=== PATIENT | female | born 2000 | race Caucasian/White ===

== ENCOUNTER 2021-10-28 13:57 | Emergency (ER) | payer OTHER ==
[~2021-10-28] VITALS: Ht 154.9 cm; Wt 86.7 kg
[2021-10-28 14:05] VITALS: BP 106/70
--- NOTE | 2021-10-28 14:16 | NUR ---
PT AMBULATED TO BED 2
--- NOTE | 2021-10-28 14:20 | NUR ---
WILLY DAMON BEDSIDE EVALUATING PT
--- NOTE | 2021-10-28 14:23 | NUR ---
21Y FEMALE BIB SELF WITH C/O 3/10 SORE THROAT, LEFT EAR PAIN X TODAY. PT TOOK IBUPROFEN 3 HOURS AGO. PER PATIENT "SHE EXPERINCED THESE SAME SYMPTOMS X2 WEEKS AGO AND WAS GIVEN AMOXICILLIN BY HER RN FRIEND WHICH RESOLVED THESE SYMPTOMS FOR A WEEK." PER PATIENT THE SYMPTOMS STARTED TO OCCUR AGAIN THIS AM. PT DENIES ANY CP, SOB, FEVER/CHILLS. PT A&OX4. PMH: DENIES NKA
--- NOTE | 2021-10-28 14:27 | NUR ---
STREP SWAB COLLECTED AND HANDED TO YOMI BREWER
[2021-10-28] MEDS ORDERED: AMOX-1230 PO (14:51)
[2021-10-28] MEDS ORDERED: IBUP-2213 PO (14:51)
[2021-10-28 15:18] VITALS: BP 106/70
--- NOTE | 2021-10-28 15:18 | NUR ---
Patient discharged with v/s stable. Written and verbal after care instructions given and explained. Patient alert, oriented and verbalized understanding of instructions. Ambulatory with steady gait. All questions addressed prior to discharge. ID band removed. Patient advised to follow up with PMD. Rx of IBUPROFEN AND AMOXICILLIN/POTASSIUM given. Patient educated on indication of medication including possible reaction and side effects. Opportunity to ask questions provided and answered.
== END 2021-10-28 15:18 | disposition home or self-care (01) ==
LOC: MED 13:57
DX: J03.90 Acute tonsillitis, unspecified (principal); Z79.1 Long term (current) use of non-steroidal anti-inflammatories (NSAID); Z79.2 Long term (current) use of antibiotics
CPT/HCPCS: 87081; 99283

== ENCOUNTER 2021-11-07 08:20 | Emergency (ER) | payer OTHER ==
[~2021-11-07] VITALS: Ht 154.9 cm; Wt 85.3 kg
[~2021-11-07 08:20] MED LIST: AMOX-1230 PO; IBUP-2213 PO
[2021-11-07 08:26] VITALS: BP 124/74
--- NOTE | 2021-11-07 08:30 | NUR ---
Pt ambulated to bed 12 steady/even gait.
--- NOTE | 2021-11-07 08:38 | NUR ---
21 y/o female, c/o throat pain 1 month, states she had tonsilitis. Pt states completing 2 treatments of Amoxicillin; reports inflammation returned 2-3 days ago. Pt reports difficulty swallowing, SOB, fatigue, chills, mouth pain 4/10, inflammed/constant, non-radiating. Reports Ibuprofen at 0545 with relief to symptoms. Denies other medical complaints at this time. Bed locked in lowest position, side rails x 1. pmh: denies med: ibuprofen nka
--- NOTE | 2021-11-07 08:48 | NUR ---
Dr. Fofana is evaluating patient at bedside
[2021-11-07] MEDS ORDERED: IBUP-2213 PO (09:09)
[2021-11-07] MEDS ORDERED: PRED20TA5 PO (09:09)
--- NOTE | 2021-11-07 09:18 | NUR ---
Patient discharged with v/s stable. Written and verbal after care instructions given and explained for Tonsillitis. Patient alert, oriented and verbalized understanding of instructions. Ambulatory with steady gait. All questions addressed prior to discharge. ID band removed. Patient advised to follow up with PMD. Rx of Ibuprofen, Prednisone given. Patient educated on indication of medication including possible reaction and side effects. Opportunity to ask questions provided and answered.
== END 2021-11-07 09:18 | disposition home or self-care (01) ==
LOC: MED 08:20
DX: J02.9 Acute pharyngitis, unspecified (principal); R07.0 Pain in throat; Z79.899 Other long term (current) drug therapy
CPT/HCPCS: 99283

== ENCOUNTER 2021-11-11 16:11 | Emergency (ER) | payer OTHER ==
[~2021-11-11] VITALS: Ht 154.9 cm; Wt 85.3 kg
[~2021-11-11 16:11] MED LIST changes: +PRED20TA5 PO
[2021-11-11 16:26] VITALS: BP 130/73
[2021-11-11] MEDS ORDERED: DEXAMETHASONE 4 MG/ML VIAL PO ONE (17:45)
[2021-11-11] MEDS ORDERED: AMOX-999 PO (17:46)
[2021-11-11] MEDS ORDERED: IBUP-2213 PO (17:46)
[2021-11-11 18:10] VITALS: BP 125/92
--- NOTE | 2021-11-11 18:10 | NUR ---
Patient discharged with v/s stable. Written and verbal after care instructions given and explained. Patient alert, oriented and verbalized understanding of instructions. Ambulatory with steady gait. All questions addressed prior to discharge. ID band removed. Patient advised to follow up with PMD. Rx of IBUPROFEN AND AUGMENTIN given. Patient educated on indication of medication including possible reaction and side effects. Opportunity to ask questions provided and answered.
== END 2021-11-11 18:10 | disposition home or self-care (01) ==
LOC: MED 16:11
DX: J36 Peritonsillar abscess (principal); Z79.1 Long term (current) use of non-steroidal anti-inflammatories (NSAID); Z79.2 Long term (current) use of antibiotics; Z79.899 Other long term (current) drug therapy
CPT/HCPCS: 99283; J1100

== ENCOUNTER 2022-03-23 20:01 | Emergency (ER) | payer OTHER ==
[~2022-03-23] VITALS: Ht 154.9 cm; Wt 86.2 kg
[~2022-03-23 20:01] MED LIST changes: +AMOX-999 PO
[2022-03-23 20:14] VITALS: BP 107/64
--- NOTE | 2022-03-23 20:21 | NUR ---
Dr. Benjamin examining patient.
[2022-03-23] MEDS ORDERED: PRED15SY34 PO (20:34)
[2022-03-23] MEDS ORDERED: AMOX400P4 PO (20:34)
[2022-03-23 21:11] VITALS: BP 110/68
--- NOTE | 2022-03-23 21:12 | NUR ---
Patient discharged with v/s stable. Written and verbal after care instructions given and explained. Patient alert, oriented and verbalized understanding of instructions. Ambulatory with steady gait. All questions addressed prior to discharge. ID band removed. Patient advised to follow up with PMD. Rx of AMOXICILLIN AND PREDNISOLONE given. Patient educated on indication of medication including possible reaction and side effects. Opportunity to ask questions provided and answered. VSS, A/OX4, AMBULATORY, UNLABORED BREATHING, AND CALM DEMEANOR. NO NURSING INTERVENTIONS PERFORMED
== END 2022-03-23 21:12 | disposition home or self-care (01) ==
LOC: MED 20:01
DX: J03.90 Acute tonsillitis, unspecified (principal); Z79.899 Other long term (current) drug therapy
CPT/HCPCS: 99283

== ENCOUNTER 2022-07-20 09:58 | Emergency (ER) | payer OTHER ==
[~2022-07-20] VITALS: Ht 154.9 cm; Wt 77.1 kg
[~2022-07-20 09:58] MED LIST changes: +AMOX400P4 PO; +PRED15SY34 PO
[2022-07-20 10:19] VITALS: BP 100/75
--- NOTE | 2022-07-20 11:13 | NUR ---
WILLY KEEN IN TRIAGE FOR EVAL
--- NOTE | 2022-07-20 11:16 | NUR ---
22 Y/O FEMALE BIB SELF C/O SORE THROAT AND SWELLING IN THE TONSILS X4DAYS, NOTED +3 SWELLING ON LEFT TONSIL, SPEAKING IN FULL SENTENCES NKA PMH: DENIES
[2022-07-20] MEDS ORDERED: DEXAMETHASONE 10 MG/ML VIAL IM ONE (11:35)
[2022-07-20] MEDS ORDERED: IBUPROFEN 600 MG TAB PO ONE (11:35)
[2022-07-20] MEDS ORDERED: BENZ-300 PO (11:38)
[2022-07-20] MEDS ORDERED: IBUP-2213 PO (11:38)
--- NOTE | 2022-07-20 12:00 | NUR ---
Patient discharged with v/s stable. Written and verbal after care instructions ABOUT PHARYNGITIS given and explained. Patient alert, oriented and verbalized understanding of instructions. Ambulatory with steady gait. All questions addressed prior to discharge. ID band removed. Patient advised to follow up with PMD. Rx of CEPACOL SORE THROAT LOZENGE, IBUPROFEN given. Patient educated on indication of medication including possible reaction and side effects. Opportunity to ask questions provided and answered.
[2022-07-20] MEDS ORDERED: AMOX-999 PO (20:45)
== END 2022-07-20 12:00 | disposition home or self-care (01) ==
LOC: MED 09:58
DX: J02.9 Acute pharyngitis, unspecified (principal); M79.10 Myalgia, unspecified site; Z79.899 Other long term (current) drug therapy
CPT/HCPCS: 96372; 99283; J1100

== ENCOUNTER 2022-12-21 10:53 | Emergency (ER) | payer OTHER ==
[~2022-12-21] VITALS: Ht 154.9 cm; Wt 72.6 kg
[~2022-12-21 10:53] MED LIST changes: +BENZ-300 PO; +PRED15SO54 PO; -PRED15SY34 PO
[2022-12-21 10:58] VITALS: BP 113/70
--- NOTE | 2022-12-21 11:02 | NUR ---
pt ambulatory to bed 03
--- NOTE | 2022-12-21 11:09 | NUR ---
Patient being evaluated by physician at bedside.
[2022-12-21] MEDS ORDERED: PENICILLIN G BENZATHINE L-A 1.2 MU/2 ML SYR IM ONE (11:15)
[2022-12-21] MEDS ORDERED: KETOROLAC 60 MG/2 ML VIAL IM ONE (11:15)
[2022-12-21] MEDS ORDERED: PRED20TA5 PO (11:16)
[2022-12-21] MEDS ORDERED: IBUP-2213 PO (11:16)
[2022-12-21] MEDS ORDERED: PENICILLIN G BENZATHINE C-R 1.2 MU/2 ML SYR IM ONE (11:20)
--- NOTE | 2022-12-21 11:40 | NUR ---
Patient discharged with v/s stable. Written and verbal after care instructions given and explained. Patient alert, oriented and verbalized understanding of instructions. Ambulatory with steady gait. All questions addressed prior to discharge. ID band removed. Patient advised to follow up with PMD. Rx of IBUPROFEN, PRDENISONE given. Patient educated on indication of medication including possible reaction and side effects. Opportunity to ask questions provided and answered.
== END 2022-12-21 11:38 | disposition home or self-care (01) ==
LOC: MED 10:53
DX: J02.0 Streptococcal pharyngitis (principal); Z79.899 Other long term (current) drug therapy
CPT/HCPCS: 96372; 99284; J0558; J1885

== ENCOUNTER 2022-12-25 09:53 | Emergency (ER) | payer OTHER ==
[~2022-12-25] VITALS: Ht 154.9 cm; Wt 74.4 kg
[2022-12-25 09:56] VITALS: BP 129/78
--- NOTE | 2022-12-25 10:01 | NUR ---
pt ambulatory to bed 09
[2022-12-25] MEDS ORDERED: DEXAMETHASONE 10 MG/ML VIAL IM ONE (10:30)
[2022-12-25] MEDS ORDERED: LIDO15SO4 PO (10:58)
[2022-12-25] MEDS ORDERED: PENI500T20 PO (10:58)
[2022-12-25 11:44] VITALS: BP 130/62
--- NOTE | 2022-12-25 11:46 | NUR ---
PA spoke with pt and gave order for dc. ACI given and reviewed with pt. Pt verbalized understanding and will follow up with primary. Pt is a/o x 4, vss, no ss of acute distress, breathing equal and unlabored, speech clear. Pt is strept specimen obtained/labeled and sent to lab. Steady gait witnessed upon leaving.
== END 2022-12-25 11:44 | disposition home or self-care (01) ==
LOC: MED 09:53
DX: J03.90 Acute tonsillitis, unspecified (principal); Z79.899 Other long term (current) drug therapy
CPT/HCPCS: 87081; 96372; 99283; J1100

== ENCOUNTER 2023-06-10 11:37 | Emergency (ER) | payer OTHER ==
[~2023-06-10] VITALS: Ht 154.9 cm; Wt 74.8 kg
[~2023-06-10 11:37] MED LIST changes: +LIDO15SO4 PO; +PENI500T20 PO
[2023-06-10 11:51] VITALS: BP 106/61; PULSE 60; RESP 18; TEMP 97.8; O2SAT 100
[2023-06-10] MEDS ORDERED: BENZ-300 PO ×2 (13:15→13:58)
== END 2023-06-10 13:50 | disposition home or self-care (01) ==
LOC: MED 11:37
DX: J02.9 Acute pharyngitis, unspecified (principal); Z20.822 Contact with and (suspected) exposure to COVID-19; Z79.899 Other long term (current) drug therapy; Z79.2 Long term (current) use of antibiotics; Z79.1 Long term (current) use of non-steroidal anti-inflammatories (NSAID)
CPT/HCPCS: 87081; 99283